=== PATIENT | male | born 1970 | race Caucasian/White ===

== ENCOUNTER 2017-09-05 17:36 | Emergency (ER) | payer MEDICAID ==
[2017-09-05 17:50] VITALS: PULSE 88; RESP 18; TEMP 98.1
[2017-09-05 17:53] VITALS: BMI 27.3
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
[2017-09-05 19:53] VITALS: BP 161/98; O2SAT 99
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
== END 2017-09-05 20:02 | disposition home or self-care (01) ==
LOC: ED 17:36
DX: M54.9 Dorsalgia, unspecified (principal); M54.2 Cervicalgia; E11.9 Type 2 diabetes mellitus without complications; I10 Essential (primary) hypertension
CPT/HCPCS: 72125; 72128; 96372; 99285; J1885